=== PATIENT | female | born 2005 | race Caucasian/White ===

== ENCOUNTER → 2024-04-11 09:03 | Outpatient (CLI) | payer BC, SELFPAY ==
[2024-04-11 10:04] LABS: COVID-19 CEPHEID 4-PLEX PCR Negative (Negative); Influenza A - CEPHEID Flu A POSITIVE (NEGATIVE); Influenza B - CEPHEID Flu B NEGATIVE (NEGATIVE); Respiratory Syncytial Virus Negative (Negative)
== END ==
PROVIDERS: Visit Provider Student in an Organized Health Care Education/Training Program
DX: R05.1 Acute cough (principal)
CPT/HCPCS: 0241U; 87070